=== PATIENT | male | born 1995 ===

== ENCOUNTER 2017-01-19 16:33 | Emergency (ER) | payer SELFPAY ==
[2017-01-19 16:48] VITALS: TEMP 99
--- NOTE | 2017-01-19 18:50 | C.PDOC ---
History Of Present Illness Pt was lifting a heavy tire when he developed low back pain. Time Seen by Provider: 01/19/17 17:48 Chief Complaint (Nursing): Back Pain History Per: Patient Onset/Duration Of Symptoms: Sudden Onset (Just [employer]OOK[employer]) Current Symptoms Are (Timing): Still Present Quality Of Discomfort: "Pain" Severity: Moderate Previous Symptoms: None Associated Symptoms: None Exacerbating Factor(s): Movement Additional History Per: Prior Records Past Medical History Reviewed: Historical Data, Nursing Documentation, Vital Signs Vital Signs: Last Vital Signs Temp 99 F 01/19/17 16:44 Pulse 86 01/19/17 16:44 Resp 18 01/19/17 16:44 BP 128/75 01/19/17 16:44 Pulse Ox 99 01/19/17 18:50 - Medical History PMH: No Chronic Diseases Surgical History: No Surg Hx Family History: States: Unknown Family Hx - Social History Hx Alcohol Use: Yes Hx Substance Use: No Review Of Systems Except As Marked, All Systems Reviewed And Found Negative. Constitutional: Negative for: Fever, Weakness Cardiovascular: Negative for: Chest Pain Respiratory: Negative for: Shortness of Breath Gastrointestinal: Negative for: Vomiting, Abdominal Pain Genitourinary: Negative for: Dysuria, Incontinence, Hematuria Musculoskeletal: Positive for: Back Pain. Negative for: Neck Pain Skin: Negative for: Rash Neurological: Negative for: Weakness, Numbness Physical Exam - Physical Exam Appears: Non-toxic, No Acute Distress Skin: Normal Color, Warm, Dry, No Rash Head: Atraumatic, Normacephalic Eye(s): bilateral: Normal Inspection, PERRL, EOMI Neck: Normal ROM, Supple Chest: Symmetrical, No Deformity Cardiovascular: Rhythm Regular Respiratory: Normal Breath Sounds, No Accessory Muscle Use Gastrointestinal/Abdominal: Soft, No Tenderness, No Mass Back: No CVA Tenderness, Vertebral Tenderness (lumbo/sacral) Extremity: Normal ROM Neurological/Psych: Oriented x3, Normal Motor, Normal Sensation ED Course And Treatment O2 Sat by Pulse Oximetry: 99 Pulse Ox Interpretation: Normal - Other Rad LS spine x-rays X-Ray: Interpreted by Me, Viewed By Me Interpretation: No acute fx or subluxation. Reassessment Condition: Improved Disposition Counseled Patient/Family Regarding: Studies Performed, Diagnosis, Need For Followup, Rx Given - Disposition Referrals: [facility] [Outside] Disposition: HOME/ ROUTINE Disposition Time: 18:55 Condition: IMPROVED Additional Instructions: Follow up in the clinic for further evaluation and treatment. Return to the ER if you develop weakness, numbness, trouble urinating, worsening of symptoms or if you have any other concerns. Prescriptions: Cyclobenzaprine [Cyclobenzaprine HCl] 10 mg PO TID PRN #15 tab PRN Reason: Muscle Spasm Naproxen [Naprosyn] 1 tab PO BID PRN #20 tab PRN Reason: Pain Instructions: Acute Low Back Pain (ED) Forms: Gen Discharge Inst Danish, Work Excuse Print Language: [place] - Clinical Impression Clinical Impression: Low back sprain
[2017-01-19 19:12] VITALS: BP 121/71; PULSE 69; RESP 17; O2SAT 100
--- NOTE | 2017-01-20 07:29 | RAD ---
PROCEDURE: Radiographs of the Lumbar Spine. HISTORY: Low back pain COMPARISON: No prior. FINDINGS: BONES: There is straightening of lumbar curvature without fracture or spondylolisthesis identified. Review body heights are normal. No suspicious lytic or blastic change. Positional change in anterior posterior alignment versus mild dextroscoliosis at the lumbosacral junction. DISC SPACES: Unremarkable. OTHER FINDINGS: None. IMPRESSION: Potential positional change in curvature versus intrinsic mild dextroscoliosis at the lumbosacral junction. No fracture or spondylolisthesis. Mild straightening of the lumbar curvature noted.
== END 2017-01-19 19:11 | disposition home or self-care (01) ==
LOC: C.ER 16:33
DX: S33.9XXA Sprain of unspecified parts of lumbar spine and pelvis, initial encounter (principal); X50.0XXA Overexertion from strenuous movement or load, initial encounter
CPT/HCPCS: 72100; 96372; 99283; J1885